=== PATIENT | male | born 1985 | race Caucasian/White ===

== ENCOUNTER 2019-12-22 14:08 | Emergency (ER) | payer OTHER ==
[~2019-12-22] VITALS: Ht 179.1 cm; Wt 113.6 kg
[2019-12-22 18:50] LABS: BASOPHILS # (AUTO) 0.1 X10'3 (0-0.2); BASOPHILS % (AUTO) 0.7 % (0-1); EOSINOPHILS % (AUTO) 0.4 % (0-6); HEMOGLOBIN 14.1 g/dl (14.0-17.9); LYMPHOCYTES # (AUTO) 1.1 X10'3 (1.1-4.8); LYMPHOCYTES % (AUTO) 14.5 % (21-51); MEAN CORPUSCULAR HEMOGLOBIN 30.4 PG (27.0-31.0); MEAN CORPUSCULAR HGB CONC 34.4 g/dL (33.0-36.5); MEAN CORPUSCULAR VOLUME 88.5 FL (78-98); MEAN PLATELET VOLUME 7.8 FL (7.4-10.4); MONOCYTES # (AUTO) 0.8 X10'3 (0-0.9); MONOCYTES % (AUTO) 9.9 % (2-12); NEUTROPHILS # (AUTO) 5.9 X10'3 (1.8-7.7); NEUTROPHILS % (AUTO) 74.5 % (42-75); PLATELET COUNT 289 X10'3 (140-440); RED BLOOD COUNT 4.63 X10'6 (4.70-6.10); RED CELL DISTRIBUTION WIDTH 12.4 % (11.5-14.5); WHITE BLOOD COUNT 7.9 X10'3 (4.5-11.0)
[2019-12-22 19:01] LABS: ALANINE AMINOTRANSFERASE 66 U/L (12-78); ALBUMIN 3.8 G/DL (3.4-5.0); ALBUMIN/GLOBULIN RATIO 1.1 (1.1-1.5); ALKALINE PHOSPHATASE 77 IU/L (46-116); ANION GAP 9 (8-16); ASPARTATE AMINO TRANSFERASE 45 U/L (10-37); BILIRUBIN,TOTAL 0.7 MG/DL (0.1-1.0); BLOOD UREA NITROGEN 15 MG/DL (7-18); CALCIUM 9.2 MG/DL (8.5-10.1); CHLORIDE 102 MMOL/L (99-107); CREATININE 1.07 MG/DL (0.60-1.10); GLUCOSE 104 MG/DL (70-104); POTASSIUM 4.1 MMOL/L (3.5-5.1); SODIUM 139 MMOL/L (135-145); TOTAL PROTEIN 7.4 G/DL (6.4-8.2); eGFR 80 ML/MIN
[2019-12-22] MEDS ORDERED: CEPH250T PO (19:13)
[2019-12-22 19:20] VITALS: BP 113/81
== END 2019-12-22 19:21 | disposition home or self-care (01) ==
LOC: ER 14:09
DX: R60.0 Localized edema (principal); M79.604 Pain in right leg; F12.90 Cannabis use, unspecified, uncomplicated; F11.90 Opioid use, unspecified, uncomplicated; Z86.718 Personal history of other venous thrombosis and embolism; Z72.89 Other problems related to lifestyle; Z79.2 Long term (current) use of antibiotics
CPT/HCPCS: 36415; 80053; 83605; 83880; 84145; 85025; 87040; 93971; 99285

== ENCOUNTER 2025-01-08 15:01 | Emergency (ER) | payer OTHER ==
[~2025-01-08] VITALS: Ht 180.3 cm; Wt 136.6 kg
[2025-01-08 15:06] VITALS: TEMP 97.2
--- NOTE | 2025-01-08 15:15 | Physician Documentation ---
History of Present Illness ~ Chief Complaint: Leg Pain Stated Complaint: R LEG SWELLING Time Seen by MD: 16:55 Primary Medical Doctor: NONE HPI Is a very pleasant 39-year-old male that presents to the emergency department for evaluation of a nodule or lump to the medial left thigh. Patient reports he has had intermittent episodes with this area he has had an increase in the pain and discomfort of it over the last 5 days. Patient has multiple areas of sores or wounds to the lower extremities. Reports that he is a heavy drinker intermittently he has been sober for the past 2 weeks until the last couple of days very consumed a significant amount of alcohol again. Denies any symptoms associated with his alcohol use at this time but would like to have his leg evaluated as he is concerned for infection and reports that he has become near sepsis on multiple occasions. Fever chills nausea vomiting or diarrhea at this time. Tetanus witin 5 years: No Medication Reconciliation Allergies: Coded Allergies: No Known Allergies (Unverified , 12/22/19) Past Medical History Past Medical History: Deep Vein Thrombosis Past Surgical History: noncontributory Alcohol Use: Occasionally Drug Use: marijuana, heroin Lives In: Home Review of Systems ROS As stated above in the HPI, otherwise all systems are reviewed and negative. Physical Exam Vital Signs: Temperature: 97.2, Source: Temporal, Heart Rate: 120, Respiratory Rate: 18, BP: 169/116, Pulse Oximetry: 98, Weight: 136.600 Oxygen Flow Rate: 0 Physical Exam VITALS: Reviewed and as above. GENERAL: Alert, no apparent distress. HEENT: Normocephalic, atraumatic, PERRL, EOMI, dry mucosa, no erythema RESPIRATORY: Lungs clear, normal breath sounds, no respiratory distress. CHEST: No accessory muscle use, no retractions CV: Regular rate, rhythm, no edema, no murmur, No: JVD GI: Soft, non-tender, bowels sounds present, no rebound, guarding, or rigidity BACK: No CVA tenderness, or swelling MUSCULOSKELETAL No deformities, no edema SKIN: Warm and dry, small area of rash consistent with infectious dermatitis to the right medial thigh. NEURO: Oriented x4, No motor or sensory deficit PSYCH: Normal mood and affect, no agitation Progress Results/Orders Results/Orders Orders - ANA MYERSP General Nursing Order (01/08/25 16:56) Vital Signs 01/08/25 01/08/25 01/08/25 15:06 16:42 17:36 Temp 97.2 Pulse 120 92 Resp 18 16 16 B/P (MAP) 169/116 136/93 (107) Pulse Ox 98 99 O2 Flow Rate 0 0 Medical Decision Making Additional information obtaine: other Findings 39-year-old male presented to the ED for evaluation of a rash/wound on the medial right thigh. No abscess was identified on exam. Patient reports a history of similar episodes in the same area, previously resolved with antibiotics. He has consumed significant alcohol over the past several days but currently denies fever, chills, nausea, vomiting, diarrhea, or other systemic symptoms. No evidence of systemic inflammatory response syndrome, diabetes, or other high- risk features for severe infection. Physical exam revealed a localized rash/wound without fluctuance, purulence, or signs of deep tissue involvement. No imaging was indicated. No evidence of necrotizing infection, vesiculobullous lesions, or other dermatologic emergencies.Wound care recommendations include gentle cleansing and maintaining a moist environment to optimize healing. Given the absence of systemic symptoms and high-risk features, outpatient management is appropriate. The patient will be discharged with a prescription for cephalexin (Keflex) for 7 days, targeting common skin pathogens such as Streptococcus and Staphylococcus species.He was advised to follow up with his primary care provider and to return to the ED for any worsening symptoms, including fever, chills, nausea, vomiting, diarrhea, or progression of the rash/wound. Patient education provided regarding wound care, medication adherence, and return precautions. No immediate specialist consultation or hospitalization required. General Diff Dx:Considerations: Include: Abrasion, Contusion, Fracture, Hemato ma, Laceration, Malunion, Neurovascular injury, Open fracture, Sprain, Ulcer, Other Knee Diff Dx:Considerations: Include: Abrasion, Arthritis, Contusion, DJD, Fracture-femur, Fracture-fibula, Fracture-patella, Fracture-tibia, Gout, He matoma, Laceration, Meniscus injury, Neurovascular injury, Open fracture, Rheumatoid arthritis, Septic, Sprain, Sprain-MCL, Sprain-LCL, Sprain-ACL, Sprain-PCL, Other Ankle Diff Dx:Considerations: Include: Abrasion, Arthritis, Contusion, DJD, Fracture-metatarsal, Fracture-fibula, Fracture-tarsal, Fracture-tibia, Gout, Hematoma, Laceration, Malunion, Neurovascular injury, Nonunion, Open fracture, Osteomyelitis, Rheumatoid arthritis, Sprain, Septic, Ulcer, Other Foot Diff Dx:Considerations: Include: Abrasion, Arthritis, Cellulitis, Contusion, Dislocation, DJD, Fracture-metatarsal, Fracture-phalynx, Fracture- tarsal, Gout, Hematoma, Ingrown toenail, Laceration, Malunion, Neurovascular injury, Open fracture, Paronychia, Puncture, Rheumatoid, Sprain, Septic, Subungual hematoma, Ulcer, Other Toe Diff Dx:Considerations: Include: Abrasion, Cellulitis, Contusion, Dislocation, Felon, Fracture, Hematoma, Laceration, Neurovascular injury, Open fracture, Paronychia, Subungual hematoma, Other Departure Disposition: 01 HOME / SELF CARE / HOMELESS Impression: Primary Impression: Skin infection Condition: Stable Additional Instructions: Diagnosis and Treatment: You have been diagnosed with a skin infection (rash or wound) on your right thigh. There is no abscess (collection of pus) present. You have been prescribed an antibiotic called cephalexin (Keflex) to take for 7 days to help treat the infection. How to Take Your Medication: Take cephalexin exactly as prescribed. Do not skip doses, and finish the entire course, even if you start to feel better before it is done. Stopping early or missing doses can make the infection come back or make the bacteria harder to treat in the future. If you miss a dose, take it as soon as you remember. If it is almost time for your next dose, skip the missed dosedo not double up. Common side effects include mild stomach upset or diarrhea. If you develop severe diarrhea, bloody stools, or abdominal pain, contact your doctor right away. Wound Care: Keep the area clean and dry. Wash gently with soap and water daily. You may cover the area with a clean, dry bandage if needed. Avoid scratching or picking at the wound. What to Watch For: Return to the emergency department or contact your doctor if you develop any of the following: Fever or chills Nausea, vomiting, or diarrhea that is severe or does not go away Worsening redness, swelling, pain, or drainage from the rash or wound The rash or wound spreads or gets worse Any other new or concerning symptoms Follow-Up: Schedule a follow-up appointment with your primary care provider as discussed. If your symptoms are not improving after a few days of antibiotics, or if you have any concerns, contact your doctor. Other Important Information: Let your doctor know if you have any allergies to antibiotics, especially penicillins or cephalosporins, or if you develop a rash, itching, or trouble breathing after taking cephalexin. Avoid heavy alcohol use while you are recovering, as it can affect your healing and overall health. Elevating your leg when sitting may help reduce swelling and speed up recovery. If you have any questions about your medication or care, please contact your healthcare provider. Referrals: NO PRIMARY CARE PROVIDER (PCP) Prescriptions Cephalexin*Monohydrate* (Keflex*) 500 Mg Capsule 1 CAP PO QID for 7 Days, #28 CAP Prov: ANA MYERS 01/08/25 Education Educated: Patient Educated regarding: diagnosis, treatment, need for follow up Signature Scribe Signature: A Attestation: Scribed for Ana Myers by JACKI Lyles . 01/08/25 18:06 ANA MYERS Jan 08, 2025 15:15
[2025-01-08 17:36] VITALS: BP 136/93; PULSE 92; RESP 16; O2SAT 99
[2025-01-08] MEDS ORDERED: CEPH-585 PO (18:05)
== END 2025-01-08 18:23 | disposition home or self-care (01) ==
LOC: ER 15:02
DX: L08.9 Local infection of the skin and subcutaneous tissue, unspecified (principal); F11.90 Opioid use, unspecified, uncomplicated; F12.90 Cannabis use, unspecified, uncomplicated; F10.129 Alcohol abuse with intoxication, unspecified; Z86.718 Personal history of other venous thrombosis and embolism; Y90.9 Presence of alcohol in blood, level not specified; Z72.89 Other problems related to lifestyle
CPT/HCPCS: 99283